=== PATIENT | female | born 1985 | race Caucasian/White ===

== ENCOUNTER 2018-12-06 10:31 | Inpatient (IN) | payer MEDICAID ==
[~2018-12-06] VITALS: Ht 162.6 cm; Wt 102.9 kg
[2018-12-06] MEDS ORDERED: tuberculin, purif. prot. deriv. 5 units/0.1ml ID ONE (14:40)
[2018-12-06] MEDS ORDERED: mag hydrox/Alum hydrox/simeth 30ml oral suspension PO PRN (15:00)
[2018-12-06] MEDS ORDERED: magnesium hydroxide 30ml (MOM) UD suspension PO PRN (15:00)
[2018-12-06] MEDS ORDERED: acetaminophen 325mg tablet PO PRN ×2 (15:00)
[2018-12-06 16:00] LABS: HEMOGLOBIN A1C 5.1 % (4.5-6.2)
[2018-12-06] MEDS ORDERED: FLU VACC QUAD 2018(5 YR UP)/PF 60 MCG/0.5 ML SYRINGE IM ONE (16:20)
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
[2018-12-06] MEDS ORDERED: ZOLP10TA5 PO (17:19)
[2018-12-06] MEDS ORDERED: LORA1TAB PO (17:19)
[2018-12-06] MEDS ORDERED: LITH450T2 PO (17:19)
[2018-12-06] MEDS ORDERED: GABA600T13 PO (17:19)
[2018-12-06] MEDS ORDERED: BUPR-94 PO (17:19)
[2018-12-06 17:21] VITALS: BP 161/87
[2018-12-06 17:40] LABS: CHOL/HDL RATIO 4.8 (0.00-4.99); CHOLESTEROL 207 MG/DL (0-200); HDL CHOLESTEROL 43 MG/DL (35-60); LDL CHOLESTEROL 146 MG/DL (50-100); TRIGLYCERIDES 144 MG/DL (20-135)
[2018-12-06] MEDS ORDERED: NICOTINE POLACRILEX 4 MG LOZENGE BC PRN (18:45)
[2018-12-06] MEDS ORDERED: NICOTINE POLACRILEX 2 MG LOZENGE MM PRN (19:28)
[2018-12-06] MEDS: lithium carbonate 150mg capsule PO SCH (20:31)
[2018-12-06] MEDS: LORazepam 1 MG tablet PO PRN (20:31)
[2018-12-06] MEDS: zolpidem 5mg tablet PO PRN (20:32)
[2018-12-06 20:50] VITALS: BP 140/70
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
[2018-12-07] MEDS: LORazepam 1 MG tablet PO PRN ×3 (07:56→20:42)
[2018-12-07] MEDS: buPROPion SR 100mg tab PO SCH ×2 (07:56→13:07)
[2018-12-07 07:57] VITALS: BP 134/74
[2018-12-07] MEDS: NICOTINE POLACRILEX 2 MG LOZENGE MM PRN (09:41)
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
[2018-12-07 19:00] VITALS: BP 153/101
[2018-12-07 19:46] LABS: ALANINE AMINOTRANSFERASE 53 U/L (12-78); ALBUMIN/GLOBULIN RATIO 0.9 (1.1-1.5); ALKALINE PHOSPHATASE 93 IU/L (46-116); ANION GAP 9 (8-16); ASPARTATE AMINO TRANSFERASE 31 U/L (10-37); BILIRUBIN,TOTAL 0.5 MG/DL (0.1-1.0); BLOOD UREA NITROGEN 13 MG/DL (7-18); BUN/CREATININE RATIO 14.8 (6.6-38.0); CALCIUM 9.9 MG/DL (8.5-10.1); CHLORIDE 104 MMOL/L (99-107); CREATININE 0.88 MG/DL (0.40-0.90); GLUCOSE 103 MG/DL (70-104); POTASSIUM 3.8 MMOL/L (3.5-5.1); SODIUM 140 MMOL/L (135-145); TOTAL CARBON DIOXIDE 27.2 MMOL/L (24-32); TOTAL PROTEIN 8.4 G/DL (6.4-8.2); eGFR 74 ML/MIN
[2018-12-07] MEDS: DOXYCYCLINE 100MG CAPSULE PO SCH (20:42)
[2018-12-07] MEDS: lithium carbonate 150mg capsule PO SCH (20:43)
[2018-12-07] MEDS: zolpidem 5mg tablet PO PRN (20:43)
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
[2018-12-08] MEDS: buPROPion SR 150mg tablet PO SCH ×2 (07:50→13:45)
[2018-12-08] MEDS: DOXYCYCLINE 100MG CAPSULE PO SCH ×2 (07:50→17:22)
[2018-12-08 07:58] VITALS: BP 114/78
[2018-12-08] MEDS: LORazepam 1 MG tablet PO PRN ×3 (09:59→20:42)
[2018-12-08] MEDS: NICOTINE POLACRILEX 2 MG LOZENGE MM PRN (10:38)
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
[2018-12-08 19:00] VITALS: BP 130/80
[2018-12-08] MEDS: lactobacillus rhamnosus 10,000 MMU CELLS/CAPSULE PO SCH (20:42)
[2018-12-08] MEDS: zolpidem 5mg tablet PO PRN (20:42)
[2018-12-08] MEDS: lithium carbonate 150mg capsule PO SCH (20:44)
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
[2018-12-09 08:00] VITALS: BP 120/75
[2018-12-09] MEDS: lactobacillus rhamnosus 10,000 MMU CELLS/CAPSULE PO SCH ×2 (08:52→20:05)
[2018-12-09] MEDS: LORazepam 1 MG tablet PO PRN ×2 (08:52→17:30)
[2018-12-09] MEDS: buPROPion SR 150mg tablet PO SCH ×2 (08:52→12:44)
[2018-12-09] MEDS: DOXYCYCLINE 100MG CAPSULE PO SCH ×2 (08:52→17:30)
[2018-12-09] MEDS: NICOTINE POLACRILEX 2 MG LOZENGE MM PRN ×2 (09:18→13:35)
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
[2018-12-09] MEDS ORDERED: DOXY-224 PO (19:41)
[2018-12-09] MEDS ORDERED: LACT1CAP26 PO (19:41)
[2018-12-09] MEDS ORDERED: BUPR-84 PO (19:41)
[2018-12-09] MEDS ORDERED: LITH450T2 PO (19:41)
[2018-12-09 20:00] VITALS: BP 148/98
[2018-12-09] MEDS: lithium carbonate 150mg capsule PO SCH (20:05)
--- NOTE | 2018-12-09 20:30 | NUR ---
Nursing Discharge Note: Pt discharged at 2030 to home via personal vehicle. Escorted to lobby by [place] PT. Pt has been improving since admission and in no acute physical or emotional distress. Pt left in pleasant mood and bright affect and denies SI. Her valuables have been inventoried and returned. Pt plans to resume smoking and has F/U appts per discharge instructions.
== END 2018-12-09 20:20 | disposition home or self-care (01) | DRG 751 ==
LOC: ADULT MH 14:18
PROVIDERS: ADMIT Psychiatry & Neurology Psychiatry; ATTEND Psychiatry & Neurology Psychiatry
DX: F33.2 Major depressive disorder, recurrent severe without psychotic features (principal); R45.851 Suicidal ideations; F43.10 Post-traumatic stress disorder, unspecified; F12.10 Cannabis abuse, uncomplicated; F15.11 Other stimulant abuse, in remission; F17.210 Nicotine dependence, cigarettes, uncomplicated; L02.411 Cutaneous abscess of right axilla; Z81.8 Family history of other mental and behavioral disorders; Z82.49 Family history of ischemic heart disease and other diseases of the circulatory system; Z90.710 Acquired absence of both cervix and uterus; Z79.899 Other long term (current) drug therapy; Z88.1 Allergy status to other antibiotic agents; Z88.8 Allergy status to other drugs, medicaments and biological substances; Z23 Encounter for immunization
CPT/HCPCS: 36415; 80053; 80061; 83036; 84443; 87070; 99285; Q2037